=== PATIENT | male | born 1995 | race American Indian/Alaskan Native ===

== ENCOUNTER 2018-06-05 03:33 | Emergency (ER) | payer SELFPAY ==
[2018-06-05 03:51] VITALS: BP 123/60
[2018-06-05] MEDS ORDERED: BOOSTRIX IM ONE (04:26)
[2018-06-05] MEDS ORDERED: MORPHINE IV ONE (04:26)
[2018-06-05] MEDS ORDERED: NACL 0.9% 1000 ML 1,000 ML IV ONE (04:26)
[2018-06-05] MEDS ORDERED: ZOFRAN IV ONE (04:26)
[2018-06-05] MEDS ORDERED: ceFAZolin 2 GM in NACL 0.9% 100 ML IV ONE (04:26)
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
[2018-06-05] MEDS ORDERED: ANCEF ONE (04:56)
[2018-06-05 06:46] LABS: BUN/Creatinine Ratio 14; Blood Urea Nitrogen 14 mg/dL (9-20); Calcium 8.6 mg/dL (8.4-10.2); Hemolysis Index 7
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
== END 2018-06-05 08:35 | disposition home or self-care (01) ==
LOC: ED 03:33
DX: S71.132A Puncture wound without foreign body, left thigh, initial encounter (principal); W34.09XA Accidental discharge from other specified firearms, initial encounter; Y93.H9 Activity, other involving exterior property and land maintenance, building and construction; Y92.89 Other specified places as the place of occurrence of the external cause; Y99.8 Other external cause status
CPT/HCPCS: 36415; 73552; 73706; 80048; 90471; 90715; 96365; 96375; 99284; J0690; J2270; J2405; J7030; Q9967

== ENCOUNTER 2019-09-03 12:43 | Emergency (ER) | payer SELFPAY ==
[2019-09-03 12:54] VITALS: BP 149/68
--- NOTE | 2019-09-03 13:00 | Emergency Department Report ---
Blank Doc - Documentation Documentation: 23-year-old male that presents with right testicular pain and swelling. This initial assessment/diagnostic orders/clinical plan/treatment(s) is/are subject to change based on patient's health status, clinical progression and re- assessment by fellow clinical providers in the ED. Further treatment and workup at subsequent clinical providers discretion. Patient/guardians urged not to elope from the ED as their condition may be serious if not clinically assessed and managed. Initial orders include: 1- Patient sent to [facility] for further evaluation and treatment 2- UA 3- stat US doppler
[2019-09-03 13:59] LABS: Bilirubin,Urine NEG (Negative); Blood,Urine NEG (Negative); Color,Urine Yellow (Yellow); Mucus,Urine FEW /HPF
--- NOTE | 2019-09-03 14:35 | Ultrasound Report ---
ULTRASOUND TESTICULAR DOPPLER COMPLETE HISTORY: Right testicular pain and swelling TECHNIQUE: Transscrotal ultrasound with color and spectral Doppler interrogation. FINDINGS: The right testicle measures 5.9 x 4.0 x 3.6 cm. The left testicle measures 5.1 x 2.6 x 2.9 cm. The ri ght testicle appears edematous and slightly heterogeneous with increased blood flow on color Doppler interrogation. No testicular mass or cyst. The left testicle is unremarkable. The right epididymis is thickened and heterogeneous with increased blood flow on color Doppler interr ogation. The left epididymis is normal. A small but complex right hydrocele is identified containing mild debris and septation. Spectral Doppler waveforms demonstrate arterial flow bilaterally. IMPRESSION: Acute right epididymoorchitis. Small but complex right hydrocele. Signer Name: Tyshawn Gao Jr, MD Signed: 09/03/2019 2:31 PM Workstation Name: [id number]
[2019-09-03] MEDS ORDERED: LIDOCAINE-MPF (1%) 10 MG/1 ML VIAL 5 ML INFILTRATI ONE (14:45)
--- NOTE | 2019-09-03 14:51 | Emergency Department Report ---
ED Male HPI - General Chief complaint: Urogenital-Male Stated complaint: POSS UTI Time Seen by Provider: 09/03/19 12:58 Source: patient Mode of arrival: Ambulatory Limitations: No Limitations - History of Present Illness Initial comments: patient is a 23-year-old male presents emergency room with complaints of right- sided testicular swelling and pain that began yesterday. He has associated dysuria. He denies any penile discharge, lesions, blisters, abdominal pain, nausea, vomiting, fever. He is sexually active and does not use protection. He states he engages in vaginal intercourse. He denies any rectal intercourse. He denies any past medical history or allergies medications. - Related Data Previous Rx's Medication Instructions Recorded Last Taken Type Ibuprofen [Motrin] 800 mg PO TID #30 tablet 06/07/13 Unknown Rx Cephalexin [Keflex] 500 mg PO TID #30 capsule 06/05/18 Unknown Rx Neomycn/Bacitrc/Polymyx/Pramox 1 applicatio TP BID #1 tube 06/05/18 Unknown Rx [Neosporin-Pain Itch Scar Oint] traMADoL [Ultram] 50 mg PO Q6HR PRN #12 tablet 06/05/18 Unknown Rx Acetaminophen/Codeine [Tylenol 1 tab PO Q6H PRN #10 tab 09/03/19 Unknown Rx /Codeine # 3 tab] Doxycycline Hyclate [Doxycycline 100 mg PO BID 10 Days #20 tablet 09/03/19 Unknown Rx Hyclate TAB] Allergies Allergy/AdvReac Type Severity Reaction Status Date / Time No Known Allergies Allergy Unverified 06/07/13 01:22 ED Review of Systems ROS: Stated complaint: POSS UTI Other details as noted in HPI Comment: All other systems reviewed and negative ED Past Medical Hx - Past Medical History Previous Medical History?: No - Surgical History Past Surgical History?: No - Social History Smoking Status: Never Smoker Substance Use Type: None - Medications Home Medications: Home Medications Medication Instructions Recorded Confirmed Last Taken Type Ibuprofen [Motrin] 800 mg PO TID #30 tablet 06/07/13 Unknown Rx Cephalexin [Keflex] 500 mg PO TID #30 capsule 06/05/18 Unknown Rx Neomycn/Bacitrc/Polymyx/Pramox 1 applicatio TP BID #1 tube 06/05/18 Unknown Rx [Neosporin-Pain Itch Scar Oint] traMADoL [Ultram] 50 mg PO Q6HR PRN #12 tablet 06/05/18 Unknown Rx Acetaminophen/Codeine [Tylenol 1 tab PO Q6H PRN #10 tab 09/03/19 Unknown Rx /Codeine # 3 tab] Doxycycline Hyclate [Doxycycline 100 mg PO BID 10 Days #20 tablet 09/03/19 Unknown Rx Hyclate TAB] ED Physical Exam - General Limitations: No Limitations General appearance: alert, in no apparent distress - Head Head exam: Present: atraumatic, normocephalic - Eye Eye exam: Present: normal appearance - ENT ENT exam: Present: mucous membranes moist - exam: Present: testicular tenderness, scrotal swelling, circumcision, other (right sided testicular edema and TTP, edema and TTP of the right epididymal appendage, left testicle and appendage are normal, normal lie of the testicles, normal creamasteric reflex, no lesions or blisters,central office supervisor: KATHLEEN Huerta ) - Neurological Exam Neurological exam: Present: alert, oriented X3 - Psychiatric Psychiatric exam: Present: normal affect, normal mood - Skin Skin exam: Present: warm, dry, intact ED Course Vital Signs 09/03/19 09/03/19 12:53 16:37 Temperature 98.4 F Pulse Rate 98 H Respiratory 16 16 Rate Blood Pressure 149/68 O2 Sat by Pulse 100 98 Oximetry ED Medical Decision Making - Lab Data Lab Results 09/03/19 Range/Units Unknown Urine Color Yellow (Yellow) Urine Turbidity Clear (Clear) Urine pH 6.0 (5.0-7.0) Ur Specific Marks 1.023 (1.003-1.030) Urine Protein 30 mg/dl (Negative) mg/dL Urine Glucose (UA) Neg (Negative) mg/dL Urine Ketones 20 (Negative) mg/dL Urine Blood Neg (Negative) Urine Nitrite Neg (Negative) Urine Bilirubin Neg (Negative) Urine Urobilinogen 4.0 (<2.0) mg/dL Ur Leukocyte Esterase Neg (Negative) Urine WBC (Auto) 1.0 (0.0-6.0) /HPF Urine RBC (Auto) 3.0 (0.0-6.0) /HPF U Epithel Cells (Auto) < 1.0 (0-13.0) /HPF Urine Mucus Few /HPF - Radiology Data Radiology results: report reviewed US testicular: Acute right epididymal orchitis. Small but complex right hydrocele - Medical Decision Making patient is a 23-year-old male presents emergency room with complaints of right- sided testicular swelling and pain that began yesterday. He has associated dysuria. He denies any penile discharge, lesions, blisters, abdominal pain, nausea, vomiting, fever. He is sexually active and does not use protection. He states he engages in vaginal intercourse. He denies any rectal intercourse. He denies any past medical history or allergies medications. VSS. UA is WNL. on exam: right sided testicular edema and TTP, edema and TTP of the right epididymal appendage, left testicle and appendage are normal, normal lie of the testicles, normal creamasteric reflex, no lesions or blisters,central office supervisor: KATHLEEN Huerta. US testicular: Acute right epididymal orchitis. Small but complex right hydrocele. Discussed ultrasound findings with patient. Patient given ceftriaxone injection. Patient will be given prescription for doxycycline. Patient does not engage in rectal intercourse no need to treat for enteric organisms. Will have patient follow-up with a urologist. advised patient to please go to the health Department for full STD panel. Advised patient to please take medication as prescribed. Please have partner tested and treated as well. No sexual intercourse for the next 10 days. Please follow-up with the urologist in the next 2-3 days and the health department. Return to the emergency room for any new or worsening symptoms. pt asked if he could have a prescription for something for pain, pt given prescription for short course of tylenol #3, advised to take as prescribed and do not drive or operate heavy machinery - Differential Diagnosis STD, UTI, orchitis, hydrocele, torsion, epididymitis, mass Critical care attestation.: If time is entered above; I have spent that time in minutes in the direct care of this critically ill patient, excluding procedure time. ED Disposition Clinical Impression: Right epididymitis, Orchitis, right Hydrocele Qualifiers: Hydrocele type: infected Qualified Code(s): N43.1 - Infected hydrocele Disposition: - TO HOME OR SELFCARE Is pt being admited?: No Does the pt Need Aspirin: No Condition: Stable Instructions: Epididymo-orchitis (ED), Hydrocele (ED) Additional Instructions: please go to the health Department for full STD panel. please take medication as prescribed. Please have partner tested and treated as well. No sexual intercourse for the next 10 days. Please follow-up with the urologist in the next 2-3 days and the health department. Return to the emergency room for any new or worsening symptoms. Prescriptions: Doxycycline Hyclate [Doxycycline Hyclate TAB] 100 mg PO BID 10 Days #20 tablet Acetaminophen/Codeine [Tylenol /Codeine # 3 tab] 1 tab PO Q6H PRN #10 tab PRN Reason: Pain , Severe (7-10) Referrals: ESPERANZA MARRERO MD [Staff Physician] - 2-3 Days [facility] [Outside] - 2-3 Days Forms: STI Treatment and Prevention, Work/School Release Form(ED) Time of Disposition: 14:57 Print Language: SLOVAK
== END 2019-09-03 16:41 | disposition home or self-care (01) ==
LOC: ED 12:43
DX: N45.1 Epididymitis (principal); N45.2 Orchitis; N43.3 Hydrocele, unspecified; Z79.899 Other long term (current) drug therapy
CPT/HCPCS: 81001; 87086; 93975; 96372; 99284; J0696